=== PATIENT | female | born 1980 | race Hispanic/Latino ===

== ENCOUNTER 2019-10-30 08:50 | Day surgery (SDC) | payer OTHER ==
--- OUTSIDE RECORDS SUMMARY | 2019-10-30 08:53 | XMS REPORT ---
:1980 [facility] Address [address] [place] [address] [address] [place] [address] Care Team Providers Name Role Phone Unavailable Unavailable Unavailable Problems This patient has no known problems. Allergies, Adverse Reactions, Alerts This patient has no known allergies or adverse reactions. Medications This patient has no known medications. Results Test Description Test Time Test Comments Text Results Atomic Results Result Comments BREAST ULTRASOUND 2018-10-15 13:42:21 - DIAG MAMM BILATERAL ESDRAS CAD BILATERAL DIGITALBILATERAL DIGITAL DIAGNOSTIC MAMMOGRAM 3D/2D WITH CAD WITH AUGMENTATION: 10/15/2018CLINICAL: Pain, right breast. Digital breast tomosynthesis was performed in addition to routine CC and MLO views. Current mammographic images were evaluated by either a [employer] M-Vu or an [employer]D version 7.2 computer aided detection system. No prior exams were available for comparison. The tissue of both breasts is heterogeneously dense. This may lower the sensitivity of mammography. Bilateral retropectoral silicone implants are present and appear intact.. A 4 mm, oval mass with circumscribed margin is noted in the left breast, medially at a posterior depth. 3-D images located this abnormality at 9-10 o'clock. No other suspicious mass, architectural distortion, malignant type calcification, or lymph node abnormality detected. INCOMPLETE ASSESSMENT: ADDITIONAL IMAGING EVALUATION RECOMMENDEDFurther evaluation is pending; breast ultrasound to be performed today. - BREAST ULTRASOUND BILATERALULTRASOUND OF BOTH BREASTS AND BOTH AXILLA: 10/15/2018No prior exams were available for comparison. Real-time ultrasound of both breasts and both axilla was performed. Subcentimeter simple cysts are noted in the left breast at 10 o'clock, 10 cm from the nipple. They correlate with the mammographic findings and are benign. Bilateral retropectoral silicone implants are in place and appear intact. No other abnormalities were seen sonographically in either breast or either axilla. IMPRESSION: BENIGN There is no sonographic evidence of malignancy. The simple cysts in the left breast are benign. Resume annual screening mammography in one year. Clinical follow-up is also recommended, and further management of breast pain should be based on the results of clinical evaluation.Anabel Estrella M.D. cc/:10/15/2018 13:42:21 Entry: - 10/17/2018 09:09:29Imaging Technologist: Faith Benedict, [facility]-RGletter sent: BIRADS 1-2 Combo FU Letter Mammogram BI-RADS: 0 Indeterminate Ultrasound BI-RADS: 2 Benign
[2019-10-30 09:05] LABS: Absolute Lymphocytes (CBC) 2.3 K/uL (0.7-4.9); Basophils % 0.9 % (0-1.3); Hematocrit 40.7 % (36.0-45.0); Lymphocytes % 23.8 % (15.3-44.8); MPV 8.1 fL (7.6-11.3)
[2019-10-30 09:06] LABS: Urine Appearance CLEAR; Urine Bilirubin NEGATIVE (NEG); Urine Blood NEGATIVE (NEG); Urine Color YELLOW; Urine Glucose NEGATIVE (NEG); Urine Protein NEGATIVE (NEG); Urine Urobilinogen 0.2 mg/dL (0.2-1.0); Urine pH 6.5 (5.0-7.0)
[2019-10-30 09:08] LABS: Urine Microscopic Reflex NO UMIC
[2019-10-30] MEDS ORDERED: Ringers Lactate 1,000 ML IV ONE (09:10)
[2019-10-30] MEDS ORDERED: CEFAZOLIN SODIUM 1 GM/VIAL ONE (09:54)
[2019-10-30] MEDS ORDERED: NS 0.9% VIAL 10 ML ONE (09:54)
[2019-10-30] MEDS ORDERED: GENTAMICIN SULF 80 MG/2ML INJ ONE (09:55)
[2019-10-30] MEDS ORDERED: NA CHLORIDE 0.9% 1,000 ML ONE (09:55)
[2019-10-30] MEDS ORDERED: BACITRACIN 50000 UNIT VIAL ONE (09:55)
[2019-10-30] MEDS ORDERED: LIDOCAINE 1% W/EPI 1:100,000 MDV 20 ML VIAL ONE (09:55)
[2019-10-30] MEDS: CEFAZOLIN/SWI 1gm 1 GM/10 ML SYR ONE ×2 (10:09→10:32)
[2019-10-30] MEDS ORDERED: propofoL 200 MG/20 ML VIAL IV ONE (10:19)
[2019-10-30] MEDS ORDERED: FENTANYL CITR 100 MCG/2 ML ONE (10:19)
[2019-10-30] MEDS ORDERED: LIDOCAINE 2% MPF 5 ML VIAL ONE (10:20)
[2019-10-30] MEDS ORDERED: MIDAZOLAM HCL 2 MG/2 ML INJ ONE (10:20)
[2019-10-30] MEDS ORDERED: ROCURONIUM 50 MG/5 ML VIAL IV ONE (10:20)
[2019-10-30] MEDS ORDERED: DIPHENHYDRAMINE 50 MG/ML VIAL ONE (10:20)
[2019-10-30] MEDS ORDERED: ONDANSETRON 4 MG/2 ML VIAL ONE (10:20)
[2019-10-30] MEDS ORDERED: dexAMETHasone 10 MG/ML VIAL ONE (10:20)
[2019-10-30] MEDS: EPINEPHRINE/PF 1 MG/ML AMP ONE ×2 (10:57→11:06)
[2019-10-30] MEDS ORDERED: MEPERIDINE HCL 25 MG/ML SYR ONE (11:11)
[2019-10-30] MEDS ORDERED: NS 0.9% VIAL 20 ML ONE (11:11)
[2019-10-30] MEDS ORDERED: MORPHINE 10 MG/ML VIAL ONE (11:11)
[2019-10-30] MEDS: Ringers Lactate 1,000 ML IV ONE ×2 (11:28→11:35)
[2019-10-30] MEDS ORDERED: EPHEDRINE SULF 50 MG/ML VIAL ONE (11:33)
[2019-10-30] MEDS ORDERED: Mastisol Adhesive Liq ONE (13:05)
[2019-10-30] MEDS ORDERED: KETOROLAC 30 MG/ML INJ ONE (13:47)
[2019-10-30] MEDS: HYDROMORPHONE HCL 1 MG/ML INJ ONE ×2 (13:56→14:01)
[2019-10-30 14:04] VITALS: TEMP 97.1
[2019-10-30] MEDS ORDERED: CODEINE 30MG/APAP 300MG TAB PO ONE (14:30)
[2019-10-30] MEDS ORDERED: CODEINE 30MG/APAP 300MG TAB ONE (14:30)
[2019-10-30 14:38] VITALS: BP 116/71; O2SAT 99
--- NOTE | 2019-10-31 07:54 | OP ---
Surgeon: Leo Espinoza MD [place] Operator: Rich. 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 Procedure Performed: Explantation donut mastopexy, fat transfer, and liposuction of the abdomen. Anesthesia: General. Procedure In Detail: After satisfactory induction of general anesthesia, the abdomen and breasts were prepped with DuraPrep, dry sterile drapes applied in the usual manner. Incision was made in the region of the right anterior superior iliac spine, left anterior superior iliac spine in midline supraumbilical. A 15 blade was used and then underwent infusion. The amount infused in the right abdomen was 400, left abdomen 500, upper abdomen 300. Fat removed from the right abdomen was 500, left abdomen 400, and the upper abdomen 170. After the fat was aspirated, it was placed on gravity and syringes to settle. The wounds were closed with 4-0 PDS with tincture of benzoin and Steri- Strips. Attention was turned to the breasts, 45 template was used to outline the right areola . Then, an eccentric chitimacha taking more_ caudad on the left breast. After the skin was incised with a zigzag pattern skin was removed and then electrocautery was used to dissect down at 9 o'clock position down to the lateral edge of pectoralis major muscle. The implant was encountered and was removed, it was a smooth with silicon gel. The right side implant was weight, left implant weighed 402 g. Attention then turned back to the right breast. The patient underwent plication of breast tissues using 2-0 Mersilene sutures to the pectoralis major muscle approximately 100 mL and remainder into the breast parenchyma. Right and left sides were done in identical manner. The total amount infused into the left breast was 342, the right breast with 245. The wound was then closed, a [place] pursestring was placed and Jv needle followed by interrupted 4-0 PDS and 4-0 PDS running subcuticular. Tincture of benzoin and Steri-Strips were applied followed by 5 x 5s, fluffs, and Marty wrap and was covered with a mulage. The patient tolerated the procedure well and returned to the recovery. GARRETT/ABDOULAYE Voice ID: [id number] Report ID: [id number] MTDD
== END 2019-10-30 15:15 | disposition home or self-care (01) ==
LOC: OR 08:50
PROVIDERS: ATTEND Specialist
PROC: 0H0V0ZZ Alteration of Bilateral Breast, Open Approach (ICD-10-PCS; 2019-10-30)
PROC: 0HPU0JZ Removal of Synthetic Substitute from Left Breast, Open Approach (ICD-10-PCS; 2019-10-30)
PROC: 0HPT0JZ Removal of Synthetic Substitute from Right Breast, Open Approach (ICD-10-PCS; 2019-10-30)
PROC: 0J083ZZ Alteration of Abdomen Subcutaneous Tissue and Fascia, Percutaneous Approach (ICD-10-PCS; 2019-10-30)
PROC: 0H0V37Z Alteration of Bilateral Breast with Autologous Tissue Substitute, Percutaneous Approach (ICD-10-PCS; principal; 2019-10-30 10:00)
DX: N64.81 Ptosis of breast (principal); N64.89 Other specified disorders of breast; Z45.812 Encounter for adjustment or removal of left breast implant; Z45.811 Encounter for adjustment or removal of right breast implant; N64.4 Mastodynia; E88.1 Lipodystrophy, not elsewhere classified; Z90.710 Acquired absence of both cervix and uterus; Z79.82 Long term (current) use of aspirin
CPT/HCPCS: 85025; 36415; 81003; 15771; 15772 ×11; 19316; 19328; 15877; J2704; J0171; J1200; J1580; J2250; J3010; J1100; J2175; J1170; J0690 ×2; J7120 ×2; J7030; J2405